=== PATIENT | female | born 1955 | race Hispanic/Latino ===

== ENCOUNTER 2018-08-04 05:30 | Day surgery (SDC) | payer OTHER ==
[~2018-08-04] VITALS: Ht 157.5 cm; Wt 80.6 kg
[2018-08-04] VITALS (10 sets, daily range): BP systolic 89–152; BP diastolic 37–76
[~2018-08-04 05:30] MED LIST: ASPI-555 PO; FURO20TA4 PO; LISI10TA7 PO; METO25TA6 PO; SITA1TAB2 PO
[2018-08-04] MEDS ORDERED: SODIUM CHLORIDE 0.9% 1000ML 1,000 ML IV ONE (06:18)
[2018-08-04] MEDS ORDERED: LACT10SO8 PO (06:29)
[2018-08-04] MEDS ORDERED: PROPOFOL 10 MG/ML 20ML VIAL IV ONE (06:49)
[2018-08-04] MEDS ORDERED: LIDOCAINE HCL-MPF 2% 5ML VIAL ONE (06:49)
[2018-08-04 07:09] LABS: BASOPHILS % (AUTO) 0.3 % (0.0-5.0); EOSINOPHILS % (AUTO) 4.9 % (0.0-8.0); HEMATOCRIT 38.2 % (36-48); LYMPHOCYTES % (AUTO) 33.2 % (21.0-51.0); MEAN CORPUSCULAR HEMOGLOBIN 31.6 pg (27.0-33.0); MEAN CORPUSCULAR HGB CONC 32.8 g/dL (32.0-36.0); MEAN CORPUSCULAR VOLUME 96.4 fL (79-99); MONOCYTES % (AUTO) 10.5 % (3.0-13.0); NEUTROPHILS % (AUTO) 51.1 % (40.0-77.0); NUCLEATED RED BLOOD CELLS 0.2 % (0.0-0.19); PLATELET COUNT (AUTO) 42 K/uL (130-400); RED BLOOD CELL COUNT(AUTO) 3.96 MIL/uL (4.00-5.50); RED CELL DISTRIBUTION WIDTH 13.7 % (11.0-15.5); WHITE BLOOD COUNT (AUTO) 4.6 K/uL (4.8-10.8)
== END 2018-08-04 08:00 | disposition home or self-care (01) ==
LOC: DAH 05:30 → ENDO 05:30
PROVIDERS: ATTEND Internal Medicine
DX: K29.50 Unspecified chronic gastritis without bleeding (principal); K31.89 Other diseases of stomach and duodenum; K74.60 Unspecified cirrhosis of liver; I10 Essential (primary) hypertension; E11.9 Type 2 diabetes mellitus without complications; F41.9 Anxiety disorder, unspecified; F32.9 Major depressive disorder, single episode, unspecified; D64.9 Anemia, unspecified; Z79.899 Other long term (current) drug therapy; Z90.49 Acquired absence of other specified parts of digestive tract; Z98.890 Other specified postprocedural states
CPT/HCPCS: 36415; 43239; 85025; 86850; 86900; 86901; 88305; J2704; J3490; J7030; P9034

== ENCOUNTER → 2018-10-31 | Outpatient (CLI) | payer OTHER ==
[~2018-10-31] MED LIST changes: -ASPI-555 PO; +LACT10SO8 PO; -LISI10TA7 PO
== END | disposition home or self-care (01) ==
LOC: RAH 08:26
PROVIDERS: ATTEND Family Medicine
DX: Z12.31 Encounter for screening mammogram for malignant neoplasm of breast (principal)
CPT/HCPCS: 77067

== ENCOUNTER → 2018-11-26 | Outpatient (CLI) | payer OTHER | END | disposition home or self-care (01) | LOC: RAH 09:17 | PROVIDERS: ATTEND Internal Medicine | DX: K74.60 Unspecified cirrhosis of liver (principal); N28.1 Cyst of kidney, acquired; Z90.49 Acquired absence of other specified parts of digestive tract | CPT/HCPCS: 76700 ==

== ENCOUNTER → 2019-03-31 | Outpatient (CLI) | payer OTHER | END | disposition home or self-care (01) | LOC: RAH 07:59 | PROVIDERS: ATTEND Internal Medicine | DX: N28.1 Cyst of kidney, acquired (principal); Z90.49 Acquired absence of other specified parts of digestive tract | CPT/HCPCS: 76700 ==

== ENCOUNTER → 2019-06-04 | Outpatient (CLI) | payer OTHER ==
[~2019-06-04] MED LIST changes: +LACT10SO62 PO; -LACT10SO8 PO
== END | disposition home or self-care (01) ==
LOC: RAH 07:54
PROVIDERS: ATTEND Family Medicine
DX: N63.11 Unspecified lump in the right breast, upper outer quadrant (principal)
CPT/HCPCS: 76641; 77066

== ENCOUNTER 2021-01-06 23:51 | Observation (INO) | payer OTHER ==
[~2021-01-06] VITALS: Ht 152.4 cm; Wt 85.3 kg
[2021-01-06 23:53] VITALS: BP 135/62
[2021-01-07] VITALS (12 sets, daily range): BP systolic 127–162; BP diastolic 56–83
[2021-01-07] MEDS ORDERED: ONDANSETRON 4MG INJ IVP ONE (01:30)
[2021-01-07] MEDS ORDERED: MORPHINE 4 MG SYG IV PRN (01:30)
[2021-01-07 06:34] LABS: BASOPHILS % (AUTO) 0.2 % (0.0-5.0); EOSINOPHILS % (AUTO) 1.3 % (0.0-8.0); HEMATOCRIT 33.2 % (36-48); MEAN CORPUSCULAR HEMOGLOBIN 33.2 pg (27.0-33.0); MEAN CORPUSCULAR HGB CONC 31.9 g/dL (32.0-36.0); MEAN CORPUSCULAR VOLUME 104.1 fL (79-99); MONOCYTES % (AUTO) 11.8 % (3.0-13.0); NEUTROPHILS % (AUTO) 71.5 % (40.0-77.0); PLATELET COUNT (AUTO) 31 K/uL (130-400); RED BLOOD CELL COUNT(AUTO) 3.19 MIL/uL (4.00-5.50); RED CELL DISTRIBUTION WIDTH 14.9 % (11.0-15.5); WHITE BLOOD COUNT (AUTO) 4.5 K/uL (4.8-10.8)
[2021-01-07 06:42] LABS: ALBUMIN 2.3 g/dL (3.5-5.0); BILIRUBIN,TOTAL 3.7 mg/dL (0.2-1.0); CREATININE 0.3 mg/dL (0.5-1.5); POTASSIUM 4.7 mmol/L (3.5-5.1)
[2021-01-07 07:18] LABS: INR 1.6 (0.85-1.15); PROTHROMBIN TIME 16.7 SEC (9.6-11.6)
[2021-01-07 07:19] LABS: PARTIAL THROMBOPLASTIN TIME 34.5 SEC (26.3-35.5)
[2021-01-07] MEDS ORDERED: LACTULOSE 20 GM/30 ML UDCUP PO PRN (08:45)
[2021-01-07] MEDS ORDERED: ACETAMINOPHEN 325 MG TAB PO PRN (08:45)
[2021-01-07] MEDS: LACTATED RINGERS 1000ML 1,000 ML IV SCH (08:45)
[2021-01-07] MEDS ORDERED: CLONIDINE HCL 0.1 MG TABLET PO PRN (08:45)
[2021-01-07] MEDS ORDERED: ACETAMINOPHEN 650 MG SUPPOSITORY RC PRN (08:45)
[2021-01-07] MEDS: MORPHINE 4 MG SYG IV PRN ×2 (08:48→18:10)
[2021-01-07] MEDS ORDERED: DEXTROSE 50%-WATER 50 ML DISP.SYRIN IV PRN (09:00)
[2021-01-07] MEDS: METOPROLOL TARTRATE 25 MG TAB PO SCH ×2 (09:00→21:21)
[2021-01-07] MEDS ORDERED: POTASSIUM CHLORIDE 10% ELIXIR 20 MEQ/15 ML UDCUP PO PRN (09:00)
[2021-01-07] MEDS: LACTULOSE 20 GM/30 ML UDCUP PO SCH (09:00)
[2021-01-07] MEDS ORDERED: LIDOCAINE HCL-MPF 1% 2ML VIAL IV PRN (09:00)
[2021-01-07] MEDS: PANTOPRAZOLE 40 MG TAB DR PO SCH (09:00)
[2021-01-07] MEDS: FOLIC ACID 1 MG TABLET PO SCH (09:00)
[2021-01-07] MEDS: POLYETHYLENE GLYCOL 3350 17 GM POWD.PACK PO SCH (09:00)
[2021-01-07] MEDS: CEFTRIAXONE 1G VIAL IVP SCH (09:00)
[2021-01-07] MEDS ORDERED: KCL 20 MEQ ERTAB PO PRN (09:00)
[2021-01-07] MEDS ORDERED: THIAMINE HCL 100 MG/ML 2ML VIAL IVP SCH (09:00)
[2021-01-07] MEDS ORDERED: GLUCAGON 1MG KIT 1 MG ML IM PRN (09:00)
[2021-01-07] MEDS: MULTIVITAMIN TABLET PO SCH (09:00)
[2021-01-07] MEDS: ENOXAPARIN SODIUM 40 MG/0.4 ML SYRINGE SQ SCH (09:00)
[2021-01-07] MEDS: THIAMINE HCL 100 MG TABLET PO SCH (09:00)
[2021-01-07] MEDS: FUROSEMIDE 20 MG TABLET PO SCH ×2 (09:00→21:21)
[2021-01-07] MEDS ORDERED: POTASSIUM CHLORIDE 20MEQ/100ML 100 ML IV PRN (09:00)
[2021-01-07 09:32] LABS: RETICULOCYTE % (AUTO) 5.04 % (0.42-2.23)
[2021-01-07 10:07] LABS: CREATINE KINASE, TOTAL 98 U/L (21-232); MYOGLOBIN 37 ng/mL (10-92); TROPONIN I < 0.04 ng/mL (0.00-0.06)
[2021-01-07 10:14] LABS: % IRON SATURATION 101.2 % (22-44)
[2021-01-07] MEDS: INSULIN HUMULIN R 100 UNIT/ML 3ML SQ SCH ×3 (11:30→21:00)
[2021-01-07] MEDS: ONDANSETRON 4MG INJ IVP PRN ×2 (12:05→22:54)
[2021-01-07 17:02] LABS: CREATINE KINASE, TOTAL 78 U/L (21-232); MYOGLOBIN 44 ng/mL (10-92); TROPONIN I < 0.04 ng/mL (0.00-0.06)
[2021-01-07 21:19] LABS: CREATINE KINASE, TOTAL 79 U/L (21-232); MYOGLOBIN 41 ng/mL (10-92); TROPONIN I < 0.04 ng/mL (0.00-0.06)
[2021-01-07 22:23] LABS: APPEARANCE,URINE Clear (CLEAR); BILIRUBIN,URINE Small (NEGATIVE); COLOR,URINE Dark Yellow (YELLOW); GLUCOSE, URINE (UA) Negative (NEGATIVE); KETONES,URINE Negative (NEGATIVE); LEUKOCYTE ESTERASE ,URINE Trace (NEGATIVE); NITRATE,URINE Negative (NEGATIVE); OCCULT BLOOD,URINE Nonhemolyzed Trace (NEGATIVE); PROTEIN,URINE Negative (NEGATIVE); UROBILINOGEN,URINE 0.2 mg/dL (0.2-1.0)
[2021-01-07 22:31] LABS: AMPHET/METH SCREEN,URINE NEGATIVE (NEGATIVE); BARBITURATE SCREEN, URINE NEGATIVE (NEGATIVE); BENZODIAZEPINES SCREEN,URINE NEGATIVE (NEGATIVE); CANNABINOID SCREEN,URINE NEGATIVE (NEGATIVE); COCAINE SCREEN,URINE NEGATIVE (NEGATIVE); OPIATE SCREEN,URINE POSITIVE (NEGATIVE); PHENCYCLIDINE SCREEN,URINE NEGATIVE (NEGATIVE)
[2021-01-07 22:40] LABS: BACTERIA,URINE Few /HPF (None Seen); MUCUS,URINE Few LPF (None Seen)
[2021-01-07] MEDS: TRAMADOL HCL 50 MG TABLET PO PRN (22:58)
[2021-01-08] VITALS (7 sets, daily range): BP systolic 130–146; BP diastolic 51–78
[2021-01-08] MEDS: LACTATED RINGERS 1000ML 1,000 ML IV SCH ×3 (01:37→23:21)
[2021-01-08 05:42] LABS: BASOPHILS % (AUTO) 0.4 % (0.0-5.0); EOSINOPHILS % (AUTO) 3.7 % (0.0-8.0); LYMPHOCYTES % (AUTO) 25.6 % (21.0-51.0); MEAN CORPUSCULAR HEMOGLOBIN 33.6 pg (27.0-33.0); MEAN CORPUSCULAR HGB CONC 31.9 g/dL (32.0-36.0); MEAN CORPUSCULAR VOLUME 105.3 fL (79-99); MONOCYTES % (AUTO) 12.1 % (3.0-13.0); PLATELET COUNT (AUTO) 39 K/uL (130-400); RED BLOOD CELL COUNT(AUTO) 3.04 MIL/uL (4.00-5.50); WHITE BLOOD COUNT (AUTO) 5.7 K/uL (4.8-10.8)
[2021-01-08 05:54] LABS: CREATININE 0.6 mg/dL (0.5-1.5); POTASSIUM 4.3 mmol/L (3.5-5.1)
[2021-01-08] MEDS: INSULIN HUMULIN R 100 UNIT/ML 3ML SQ SCH ×4 (06:11→20:50)
[2021-01-08] MEDS: TRAMADOL HCL 50 MG TABLET PO PRN ×2 (08:49→16:38)
[2021-01-08] MEDS: FUROSEMIDE 20 MG TABLET PO SCH ×2 (08:49→21:11)
[2021-01-08] MEDS: POLYETHYLENE GLYCOL 3350 17 GM POWD.PACK PO SCH (08:49)
[2021-01-08] MEDS: MULTIVITAMIN TABLET PO SCH (08:49)
[2021-01-08] MEDS: FOLIC ACID 1 MG TABLET PO SCH (08:49)
[2021-01-08] MEDS: THIAMINE HCL 100 MG TABLET PO SCH (08:49)
[2021-01-08] MEDS: METOPROLOL TARTRATE 25 MG TAB PO SCH ×2 (08:49→21:10)
[2021-01-08] MEDS: PANTOPRAZOLE 40 MG TAB DR PO SCH (08:49)
[2021-01-08] MEDS: LACTULOSE 20 GM/30 ML UDCUP PO SCH (08:50)
[2021-01-08] MEDS: CEFTRIAXONE 1G VIAL IVP SCH (08:50)
[2021-01-08] MEDS: ENOXAPARIN SODIUM 40 MG/0.4 ML SYRINGE SQ SCH (08:56)
[2021-01-08] MEDS: MORPHINE 4 MG SYG IV PRN (21:12)
[2021-01-09 03:41] VITALS: BP 136/66
[2021-01-09 05:24] LABS: CREATININE 0.5 mg/dL (0.5-1.5); POTASSIUM 3.7 mmol/L (3.5-5.1)
[2021-01-09] MEDS: INSULIN HUMULIN R 100 UNIT/ML 3ML SQ SCH ×3 (06:51→16:23)
[2021-01-09 07:15] VITALS: BP 139/64
[2021-01-09] MEDS: LACTULOSE 20 GM/30 ML UDCUP PO SCH (08:38)
[2021-01-09] MEDS: MULTIVITAMIN TABLET PO SCH (08:39)
[2021-01-09] MEDS: ENOXAPARIN SODIUM 40 MG/0.4 ML SYRINGE SQ SCH (08:39)
[2021-01-09] MEDS: FUROSEMIDE 20 MG TABLET PO SCH (08:39)
[2021-01-09] MEDS: FOLIC ACID 1 MG TABLET PO SCH (08:39)
[2021-01-09] MEDS: CEFTRIAXONE 1G VIAL IVP SCH (08:39)
[2021-01-09] MEDS: METOPROLOL TARTRATE 25 MG TAB PO SCH (08:39)
[2021-01-09] MEDS: PANTOPRAZOLE 40 MG TAB DR PO SCH (08:39)
[2021-01-09] MEDS: POLYETHYLENE GLYCOL 3350 17 GM POWD.PACK PO SCH (08:40)
[2021-01-09] MEDS: MORPHINE 4 MG SYG IV PRN (08:41)
[2021-01-09] MEDS: THIAMINE HCL 100 MG TABLET PO SCH (08:42)
[2021-01-09 11:31] VITALS: BP 149/95
[2021-01-09] MEDS: TRAMADOL HCL 50 MG TABLET PO PRN (11:38)
[2021-01-09] MEDS ORDERED: IBUPROFEN 800 MG TAB PO SCH (13:00)
[2021-01-09] MEDS: LACTATED RINGERS 1000ML 1,000 ML IV SCH (14:05)
[2021-01-09 15:37] VITALS: BP 147/66
== END 2021-01-09 18:10 | disposition home or self-care (01) ==
LOC: EDH 01-07 00:31 → EDHIP 01-07 06:54 → 3BH 01-07 20:27
PROVIDERS: ADMIT Internal Medicine Critical Care Medicine; ATTEND Internal Medicine Critical Care Medicine
DX: S92.351A Displaced fracture of fifth metatarsal bone, right foot, initial encounter for closed fracture (principal); S62.306A Unspecified fracture of fifth metacarpal bone, right hand, initial encounter for closed fracture; R10.2 Pelvic and perineal pain; E11.9 Type 2 diabetes mellitus without complications; I10 Essential (primary) hypertension; D64.9 Anemia, unspecified; E66.9 Obesity, unspecified; R42 Dizziness and giddiness; K76.0 Fatty (change of) liver, not elsewhere classified; Z82.0 Family history of epilepsy and other diseases of the nervous system; Z83.3 Family history of diabetes mellitus; Z79.899 Other long term (current) drug therapy; W10.9XXA Fall (on) (from) unspecified stairs and steps, initial encounter; Y93.01 Activity, walking, marching and hiking; Y92.89 Other specified places as the place of occurrence of the external cause; Y99.8 Other external cause status
CPT/HCPCS: 36415 ×3; 71045; 72170; 72192; 73120; 73502; 76700; 80048 ×2; 80053; 80305; 81001; 82140; 82270; 82550 ×3; 82607; 82728; 82948 ×10; 83874 ×3; 84443; 84484 ×3; 85025 ×2; 85610; 85730; 93005; 96361 ×3; 96372 ×2; 96374; 96375; 96376 ×3; 97039 ×3; 97116 ×2; 97161; 99285; G0378 ×58; G8978; G8979; G8980; G8981; G8982; G8983; J0696 ×3; J1650 ×2; J2270 ×5; J2405 ×3; J3411; J7120 ×4

== ENCOUNTER → 2021-04-14 | Outpatient (CLI) | payer OTHER | END | disposition home or self-care (01) | LOC: SHCH 15:21 | PROVIDERS: ATTEND Internal Medicine Cardiovascular Disease | DX: I08.3 Combined rheumatic disorders of mitral, aortic and tricuspid valves (principal) | CPT/HCPCS: 93306; 93356 ==

== ENCOUNTER → 2022-02-12 | Outpatient (CLI) | payer OTHER ==
[~2022-02-12] MED LIST changes: +ACET-2079 PO; +EMPA25TA PO; +FERS325 PO; +LACT10SO9 PO; +LISI2.5T13 PO; +LOSA25TA41 PO; +RIFA550T PO
== END | disposition home or self-care (01) ==
LOC: SHCH 13:20
PROVIDERS: ATTEND Internal Medicine Cardiovascular Disease
DX: R60.9 Edema, unspecified (principal)
CPT/HCPCS: 93970

== ENCOUNTER 2022-02-16 22:59 | Emergency (ER) | payer OTHER ==
[~2022-02-16] VITALS: Ht 152.4 cm; Wt 86.2 kg
[~2022-02-16 22:59] MED LIST changes: -ACET-2079 PO; -EMPA25TA PO; -FERS325 PO; -LACT10SO9 PO; -LISI2.5T13 PO; -LOSA25TA41 PO; -RIFA550T PO
[2022-02-16 23:00] VITALS: BP 174/78
[2022-02-16] MEDS ORDERED: ACET-2079 PO (23:36)
[2022-02-17] MEDS ORDERED: KETOROLAC 60 MG VIAL (30MG/ML) IM ONE
[2022-02-17] MEDS ORDERED: HYDROCODONE/ACETAMINOPHEN 5/325 MG TAB PO ONE
[2022-02-17] MEDS ORDERED: LIDOCAINE 5% TOPICAL PATCH TP ONE
== END 2022-02-17 00:15 | disposition home or self-care (01) ==
LOC: EDH 22:59
DX: S39.012A Strain of muscle, fascia and tendon of lower back, initial encounter (principal); E11.9 Type 2 diabetes mellitus without complications; E78.00 Pure hypercholesterolemia, unspecified; I10 Essential (primary) hypertension; X58.XXXA Exposure to other specified factors, initial encounter; Y93.89 Activity, other specified; Y92.89 Other specified places as the place of occurrence of the external cause; Y99.8 Other external cause status
CPT/HCPCS: 99283; 96372; J1885

== ENCOUNTER 2022-02-20 19:10 | Observation (INO) | payer OTHER ==
[~2022-02-20] VITALS: Ht 152.4 cm; Wt 84.7 kg
[~2022-02-20 19:10] MED LIST changes: +ACET-2079 PO
[2022-02-20] MEDS ORDERED: MORPHINE 4 MG SYG IM ONE (20:00)
[2022-02-20 21:48] LABS: BASOPHILS % (AUTO) 0.3 % (0.0-5.0); LYMPHOCYTES % (AUTO) 13.4 % (21.0-51.0); MEAN CORPUSCULAR HEMOGLOBIN 32.7 pg (27.0-33.0); MEAN CORPUSCULAR HGB CONC 32.3 g/dL (32.0-36.0); MEAN CORPUSCULAR VOLUME 101.3 fL (79-99); MONOCYTES % (AUTO) 14.4 % (3.0-13.0); NEUTROPHILS % (AUTO) 69.5 % (40.0-77.0); PLATELET COUNT (AUTO) 51 K/uL (130-400); RED BLOOD CELL COUNT(AUTO) 3.06 MIL/uL (4.00-5.50); RED CELL DISTRIBUTION WIDTH 15.8 % (11.0-15.5); WHITE BLOOD COUNT (AUTO) 9.8 K/uL (4.8-10.8)
[2022-02-20 21:58] LABS: POTASSIUM 4.1 mmol/L (3.5-5.1)
[2022-02-20 21:59] LABS: INR 1.45 (0.85-1.15); PROTHROMBIN TIME 15.5 SEC (9.6-11.6)
[2022-02-20 22:07] LABS: ALBUMIN 1.9 g/dL (3.5-5.0); TOTAL PROTEIN, SERUM 5.5 g/dL (6.0-8.3)
[2022-02-20] MEDS: 0.9%NACL 1000ML 1,000 ML IV SCH (22:53)
[2022-02-20] MEDS ORDERED: MORPHINE 2 MG SYG IVP PRN (23:00)
[2022-02-20] MEDS ORDERED: GLUCAGON 1MG KIT 1 MG ML IM PRN (23:00)
[2022-02-20] MEDS ORDERED: ONDANSETRON 4MG INJ IVP PRN (23:00)
[2022-02-20] MEDS ORDERED: LACTULOSE 20 GM/30 ML UDCUP PO PRN (23:00)
[2022-02-20] MEDS ORDERED: HYDRALAZINE 20MG/ML VIAL IV PRN (23:00)
[2022-02-20] MEDS ORDERED: LABETALOL 20MG SYG IV PRN (23:00)
[2022-02-20] MEDS ORDERED: DEXTROSE 50%-WATER 50 ML DISP.SYRIN IV PRN (23:00)
[2022-02-20] MEDS ORDERED: CLONIDINE HCL 0.1 MG TABLET PO PRN (23:00)
[2022-02-20] MEDS ORDERED: EMPA25TA PO (23:11)
[2022-02-20] MEDS ORDERED: FERS325 PO (23:11)
[2022-02-20] MEDS ORDERED: RIFA550T PO (23:11)
[2022-02-20] MEDS ORDERED: LISI2.5T13 PO (23:11)
[2022-02-20] MEDS ORDERED: LOSA25TA41 PO (23:11)
[2022-02-20] MEDS ORDERED: LACT10SO9 PO (23:15)
[2022-02-21] MEDS: HYDROMORPHONE 1 MG INJ IVP PRN ×2 (01:09→10:06)
[2022-02-21 07:07] LABS: HEMATOCRIT 32.8 % (36-48); MEAN CORPUSCULAR HEMOGLOBIN 32.1 pg (27.0-33.0); MEAN CORPUSCULAR HGB CONC 31.1 g/dL (32.0-36.0); MEAN CORPUSCULAR VOLUME 103.1 fL (79-99); RED BLOOD CELL COUNT(AUTO) 3.18 MIL/uL (4.00-5.50); RED CELL DISTRIBUTION WIDTH 15.9 % (11.0-15.5); WHITE BLOOD COUNT (AUTO) 8.6 K/uL (4.8-10.8)
[2022-02-21 07:26] LABS: CREATININE 0.9 mg/dL (0.5-1.5); MAGNESIUM 1.7 mg/dL (1.80-2.40); PHOSPHORUS 3.2 mg/dL (2.5-4.9)
[2022-02-21] MEDS: INSULIN HUMULIN R 100 UNIT/ML 3ML SQ SCH ×4 (07:30→20:45)
[2022-02-21 08:15] VITALS: BP 136/57
[2022-02-21] MEDS: ENOXAPARIN SODIUM 40 MG/0.4 ML SYRINGE SQ SCH (09:00)
[2022-02-21] MEDS: LIDOCAINE 5% TOPICAL PATCH TP SCH (10:10)
[2022-02-21 11:42] VITALS: BP 129/79
[2022-02-21 16:00] VITALS: BP 133/55
[2022-02-21] MEDS ORDERED: ACETAMINOPHEN WITH CODEINE 1 TAB TAB PO PRN (16:00)
[2022-02-21 16:45] VITALS: BP 133/55
[2022-02-21] MEDS: 0.9%NACL 1000ML 1,000 ML IV SCH (18:45)
[2022-02-21 20:00] VITALS: BP 135/60
[2022-02-21] MEDS ORDERED: KETOROLAC 15MG/ML VIAL (15MG/ML) ONE (20:59)
[2022-02-21] MEDS ORDERED: CALCITONIN 3.7 ML AEROSOL NS SCH (21:00)
[2022-02-22] VITALS: BP 152/67
[2022-02-22] MEDS: KETOROLAC 15MG/ML VIAL (15MG/ML) IV PRN ×3 (03:35→14:45)
[2022-02-22 04:00] VITALS: BP 125/50
[2022-02-22] MEDS: 0.9%NACL 1000ML 1,000 ML IV SCH (05:29)
[2022-02-22] MEDS: INSULIN HUMULIN R 100 UNIT/ML 3ML SQ SCH ×2 (06:16→11:06)
[2022-02-22 08:00] VITALS: BP 129/56
[2022-02-22] MEDS: LIDOCAINE 5% TOPICAL PATCH TP SCH (08:09)
[2022-02-22] MEDS: ENOXAPARIN SODIUM 40 MG/0.4 ML SYRINGE SQ SCH (08:10)
[2022-02-22 11:20] VITALS: BP 137/54
== END 2022-02-22 16:15 ==
LOC: EDH 19:10 → EDHIP 22:32 → 4BH 02-21 08:25
PROVIDERS: ADMIT Internal Medicine Critical Care Medicine; ATTEND Internal Medicine Critical Care Medicine
DX: S22.089A Unspecified fracture of T11-T12 vertebra, initial encounter for closed fracture (principal); I10 Essential (primary) hypertension; E11.9 Type 2 diabetes mellitus without complications; E78.00 Pure hypercholesterolemia, unspecified; D64.9 Anemia, unspecified; E66.01 Morbid (severe) obesity due to excess calories; D72.819 Decreased white blood cell count, unspecified; E86.9 Volume depletion, unspecified; K74.60 Unspecified cirrhosis of liver; M81.0 Age-related osteoporosis without current pathological fracture; Z79.899 Other long term (current) drug therapy; X50.9XXA Other and unspecified overexertion or strenuous movements or postures, initial encounter; Y93.F2 Activity, caregiving, lifting; Y92.89 Other specified places as the place of occurrence of the external cause
CPT/HCPCS: 96374; 96372 ×2; 96361 ×5; 99285; 84484; 80053; 85025; 85610; 36415 ×2; 72131; 72128; 93005; 96376 ×2; 96375 ×2; 83735; 84100; 80048; 85027; 82948 ×6; 97161; 97039 ×3; G0378 ×40; J7030 ×2; J2270; J1170 ×2; J2405; J1650 ×2; J1885 ×4

== ENCOUNTER 2022-04-20 14:10 | Emergency (ER) | payer OTHER ==
[~2022-04-20] VITALS: Ht 162.6 cm; Wt 81.6 kg
[~2022-04-20 14:10] MED LIST changes: +EMPA25TA PO; +FERS325 PO; +LACT10SO9 PO; +LISI2.5T13 PO; +LOSA25TA41 PO; -METO25TA6 PO; +RIFA550T PO
[2022-04-20 14:38] LABS: BASOPHILS % (AUTO) 0.5 % (0.0-5.0); EOSINOPHILS % (AUTO) 0.6 % (0.0-8.0); LYMPHOCYTES % (AUTO) 16.4 % (21.0-51.0); MEAN CORPUSCULAR HGB CONC 32.2 g/dL (32.0-36.0); MEAN CORPUSCULAR VOLUME 99.4 fL (79-99); MONOCYTES % (AUTO) 12.3 % (3.0-13.0); NEUTROPHILS % (AUTO) 68.9 % (40.0-77.0); PLATELET COUNT (AUTO) 49 K/uL (130-400); RED BLOOD CELL COUNT(AUTO) 3.62 MIL/uL (4.00-5.50); RED CELL DISTRIBUTION WIDTH 15.3 % (11.0-15.5); WHITE BLOOD COUNT (AUTO) 8.6 K/uL (4.8-10.8)
[2022-04-20 15:00] LABS: CREATININE 1.3 mg/dL (0.5-1.5); POTASSIUM 3.5 mmol/L (3.5-5.1)
[2022-04-20 15:10] LABS: ALBUMIN 1.9 g/dL (3.5-5.0); MAGNESIUM 1.2 mg/dL (1.80-2.40); TOTAL PROTEIN, SERUM 6.7 g/dL (6.0-8.3)
[2022-04-20 15:10] LABS: APPEARANCE,URINE CLEAR (CLEAR); BILIRUBIN,URINE NEGATIVE (NEGATIVE); COLOR,URINE YELLOW (YELLOW); GLUCOSE, URINE (UA) 250 mg/dL (NEGATIVE); KETONES,URINE NEGATIVE (NEGATIVE); LEUKOCYTE ESTERASE ,URINE NEGATIVE Leu/uL (NEGATIVE); NITRATE,URINE NEGATIVE (NEGATIVE); OCCULT BLOOD,URINE TRACE-INTACT (NEGATIVE); PROTEIN,URINE NEGATIVE (NEGATIVE); UROBILINOGEN,URINE 0.2 mg/dL (0.2-1.0)
[2022-04-20 15:14] LABS: B-TYPE NATRIURETIC PEPTIDE 100 pg/mL (0-100)
[2022-04-20 15:18] LABS: BACTERIA,URINE Rare /HPF (None Seen); MUCUS,URINE Rare LPF (None Seen); SQUAMOUS EPITHELIAL CELL,UR Few /HPF (0-2)
[2022-04-20] MEDS ORDERED: IPRATROPIUM/ALBUTEROL SULFATE 3 ML SOLUTION IH STA (16:41)
[2022-04-20] MEDS ORDERED: MAGNESIUM 2GM PREMIX 50ML 50 ML IV STA (16:43)
[2022-04-20] MEDS ORDERED: ALBUTEROL 0.083% 2.5 MG/3 ML INH IH ONE ×2 (17:32→18:00)
[2022-04-20] MEDS ORDERED: AUD IH (18:37)
[2022-04-20 18:44] VITALS: BP 138/87
== END 2022-04-20 18:56 | disposition home or self-care (01) ==
LOC: EDH 14:10
DX: T50.905A Adverse effect of unspecified drugs, medicaments and biological substances, initial encounter (principal); J18.9 Pneumonia, unspecified organism; E83.42 Hypomagnesemia; Z20.822 Contact with and (suspected) exposure to COVID-19; Z90.49 Acquired absence of other specified parts of digestive tract; Z98.890 Other specified postprocedural states; Z79.899 Other long term (current) drug therapy; Y92.89 Other specified places as the place of occurrence of the external cause
CPT/HCPCS: 99285; 96365; 71045; 87635; 96366; 83735; 84484; 80053; 83880; 85025; 87804 ×2; 81001; 36415; 51702; 93005; 94640 ×2; C9803; J3475

== ENCOUNTER 2022-04-27 13:44 | Emergency (ER) | payer OTHER ==
[~2022-04-27] VITALS: Ht 152.4 cm; Wt 77.1 kg
[~2022-04-27 13:44] MED LIST changes: +AUD IH
[2022-04-27 14:29] LABS: BASOPHILS % (AUTO) 0.5 % (0.0-5.0); EOSINOPHILS % (AUTO) 0.4 % (0.0-8.0); HEMATOCRIT 38.8 % (36-48); LYMPHOCYTES % (AUTO) 19.7 % (21.0-51.0); MEAN CORPUSCULAR HEMOGLOBIN 32.8 pg (27.0-33.0); MEAN CORPUSCULAR HGB CONC 32.7 g/dL (32.0-36.0); MEAN CORPUSCULAR VOLUME 100.3 fL (79-99); MONOCYTES % (AUTO) 11.7 % (3.0-13.0); NEUTROPHILS % (AUTO) 67.1 % (40.0-77.0); PLATELET COUNT (AUTO) 84 K/uL (130-400); RED BLOOD CELL COUNT(AUTO) 3.87 MIL/uL (4.00-5.50); RED CELL DISTRIBUTION WIDTH 17.4 % (11.0-15.5); WHITE BLOOD COUNT (AUTO) 9.6 K/uL (4.8-10.8)
[2022-04-27 14:40] LABS: CREATININE 1.3 mg/dL (0.5-1.5); POTASSIUM 3.1 mmol/L (3.5-5.1)
[2022-04-27 14:45] LABS: TOTAL PROTEIN, SERUM 7.2 g/dL (6.0-8.3)
[2022-04-27] MEDS: POTASSIUM BICARB/CIT AC 25 MEQ TABLET.EFF PO ONE (15:21)
[2022-04-27] MEDS: POTASSIUM BICARB/CIT AC 25 MEQ TABLET.EFF ONE (16:09)
[2022-04-27] MEDS: 0.9%NACL 1000ML 1,000 ML IV ONE (16:10)
[2022-04-27 17:03] VITALS: BP 124/76
== END 2022-04-27 17:24 | disposition home or self-care (01) ==
LOC: EDH 13:44
DX: K76.9 Liver disease, unspecified (principal); R11.2 Nausea with vomiting, unspecified; Z20.822 Contact with and (suspected) exposure to COVID-19; I10 Essential (primary) hypertension; E11.9 Type 2 diabetes mellitus without complications; I25.10 Atherosclerotic heart disease of native coronary artery without angina pectoris; Z79.899 Other long term (current) drug therapy
CPT/HCPCS: 99285; 74176; 96360; 76705; 71045; 87635; 80053; 82140; 85025; 87804 ×2; 36415; C9803; J7030

== ENCOUNTER 2022-07-13 18:16 | Inpatient (IN) | payer OTHER ==
[~2022-07-13] VITALS: Ht 152.4 cm; Wt 84.4 kg
[2022-07-13 18:45] LABS: BASOPHILS % (AUTO) 0.3 % (0.0-5.0); EOSINOPHILS % (AUTO) 1.5 % (0.0-8.0); HEMATOCRIT 32.7 % (36-48); LYMPHOCYTES % (AUTO) 15.9 % (21.0-51.0); MEAN CORPUSCULAR HEMOGLOBIN 32.9 pg (27.0-33.0); MEAN CORPUSCULAR HGB CONC 32.4 g/dL (32.0-36.0); MEAN CORPUSCULAR VOLUME 101.6 fL (79-99); MONOCYTES % (AUTO) 13.2 % (3.0-13.0); NEUTROPHILS % (AUTO) 68.6 % (40.0-77.0); PLATELET COUNT (AUTO) 36 K/uL (130-400); RED BLOOD CELL COUNT(AUTO) 3.22 MIL/uL (4.00-5.50); RED CELL DISTRIBUTION WIDTH 14.6 % (11.0-15.5); WHITE BLOOD COUNT (AUTO) 5.9 K/uL (4.8-10.8)
[2022-07-13 18:56] LABS: CREATININE 1.8 mg/dL (0.5-1.5); POTASSIUM 4.1 mmol/L (3.5-5.1)
[2022-07-13 19:04] LABS: TOTAL PROTEIN, SERUM 5.7 g/dL (6.0-8.3)
[2022-07-13] MEDS: NALOXONE HCL 0.4 MG/1 ML ML IVP SCH (20:18)
[2022-07-13 21:58] LABS: INR 1.48 (0.85-1.15); PROTHROMBIN TIME 15.8 SEC (9.6-11.6)
[2022-07-13 21:59] LABS: PARTIAL THROMBOPLASTIN TIME 32.2 SEC (26.3-35.5)
[2022-07-13] MEDS ORDERED: ONDANSETRON 4MG INJ IVP PRN (23:00)
[2022-07-13] MEDS ORDERED: ALBUTEROL 0.083% 2.5 MG/3 ML INH IH PRN (23:00)
[2022-07-13] MEDS ORDERED: HYDRALAZINE 20MG/ML VIAL IV PRN (23:00)
[2022-07-13] MEDS: IPRATROPIUM 0.5 MG/2.5 ML INH IH SCH (23:48)
[2022-07-14] VITALS (7 sets, daily range): BP systolic 105–149; BP diastolic 56–90
[2022-07-14] MEDS ORDERED: LACTULOSE 20 GM/30 ML UDCUP PR SCH ×2 (01:00→12:30)
[2022-07-14 02:17] LABS: APPEARANCE,URINE CLEAR (CLEAR); BILIRUBIN,URINE NEGATIVE (NEGATIVE); COLOR,URINE YELLOW (YELLOW); GLUCOSE, URINE (UA) TRACE mg/dL (NEGATIVE); KETONES,URINE NEGATIVE (NEGATIVE); LEUKOCYTE ESTERASE ,URINE NEGATIVE Leu/uL (NEGATIVE); NITRATE,URINE NEGATIVE (NEGATIVE); OCCULT BLOOD,URINE NEGATIVE (NEGATIVE); PH,URINE 5.5 (5.0-8.0); PROTEIN,URINE NEGATIVE (NEGATIVE); UROBILINOGEN,URINE 0.2 mg/dL (0.2-1.0)
[2022-07-14 02:19] LABS: MUCUS,URINE RARE LPF (None Seen); RBC,URINE 0-1 /HPF (0-1); SQUAMOUS EPITHELIAL CELL,UR FEW /HPF (0-2)
[2022-07-14 04:38] LABS: BASOPHILS % (AUTO) 0.5 % (0.0-5.0); EOSINOPHILS % (AUTO) 1.3 % (0.0-8.0); HEMATOCRIT 30.5 % (36-48); LYMPHOCYTES % (AUTO) 21.3 % (21.0-51.0); MEAN CORPUSCULAR HGB CONC 32.1 g/dL (32.0-36.0); MEAN CORPUSCULAR VOLUME 102.7 fL (79-99); MONOCYTES % (AUTO) 11.8 % (3.0-13.0); NEUTROPHILS % (AUTO) 64.6 % (40.0-77.0); PLATELET COUNT (AUTO) 38 K/uL (130-400); RED BLOOD CELL COUNT(AUTO) 2.97 MIL/uL (4.00-5.50); RED CELL DISTRIBUTION WIDTH 14.6 % (11.0-15.5); WHITE BLOOD COUNT (AUTO) 6.2 K/uL (4.8-10.8)
[2022-07-14 04:53] LABS: CREATININE 1.7 mg/dL (0.5-1.5); MAGNESIUM 1.9 mg/dL (1.80-2.40); PHOSPHORUS 4.6 mg/dL (2.5-4.9); POTASSIUM 4.2 mmol/L (3.5-5.1)
[2022-07-14] MEDS: IPRATROPIUM 0.5 MG/2.5 ML INH IH SCH (06:44)
[2022-07-14] MEDS ORDERED: TRAZ-187 PO (10:34)
[2022-07-14] MEDS ORDERED: METO5TAB2 PO (10:34)
[2022-07-14] MEDS ORDERED: TRAM50TA4 PO (10:34)
[2022-07-14] MEDS ORDERED: CALC-1125 PO (10:46)
[2022-07-14] MEDS ORDERED: BUME2TAB5 PO (10:46)
[2022-07-14] MEDS ORDERED: EMPA25TA PO (10:46)
[2022-07-14] MEDS ORDERED: BACL10TA PO (10:46)
[2022-07-14] MEDS ORDERED: FURO20TA4 PO (10:46)
[2022-07-14] MEDS ORDERED: [UNRECOGNIZED DRUG - OTHER] (10:46)
[2022-07-14] MEDS ORDERED: PREG25CA18 PO (10:46)
[2022-07-14] MEDS ORDERED: LOSA25TA41 PO (10:46)
[2022-07-14] MEDS ORDERED: MELA10CA2 PO (10:46)
[2022-07-14] MEDS ORDERED: OMEP10CA5 PO (10:46)
[2022-07-14] MEDS ORDERED: RIFA550T PO (10:46)
[2022-07-14] MEDS ORDERED: LACT10SO9 PO (10:47)
[2022-07-14] MEDS ORDERED: LACTULOSE 20 GM/30 ML UDCUP PO SCH (12:30)
[2022-07-14] MEDS ORDERED: PHARMACY COMMUNICATION MISC SCH (12:30)
[2022-07-14 17:21] LABS: ABG BASE EXCESS 3.7 mmol/L (-2.0-3.0); ABG HCO3 28.5 mmol/L (21.0-28.0); ABG OXYGEN SATURATION 85.5 % (95.0-99.0); ABG PCO2 44 mmHg (32-45)
[2022-07-14] MEDS: NALOXONE HCL 0.4 MG/1 ML ML IVP SCH (19:51)
[2022-07-14] MEDS: LACTULOSE 20 GM/30 ML UDCUP PO SCH (21:00)
[2022-07-14] MEDS ORDERED: DEXTROSE 50%-WATER 50 ML DISP.SYRIN IV ONE ×2 (21:12→21:14)
[2022-07-14] MEDS: FAMOTIDINE 20MG VIAL IV SCH (21:14)
[2022-07-15 04:00] VITALS: BP 124/61
[2022-07-15 06:54] LABS: HEMATOCRIT 31.3 % (36-48); MEAN CORPUSCULAR HEMOGLOBIN 32.2 pg (27.0-33.0); MEAN CORPUSCULAR HGB CONC 31.3 g/dL (32.0-36.0); RED BLOOD CELL COUNT(AUTO) 3.04 MIL/uL (4.00-5.50); RED CELL DISTRIBUTION WIDTH 14.6 % (11.0-15.5); WHITE BLOOD COUNT (AUTO) 7.2 K/uL (4.8-10.8)
[2022-07-15 07:02] LABS: CREATININE 1.7 mg/dL (0.5-1.5); POTASSIUM 4.2 mmol/L (3.5-5.1)
[2022-07-15 08:00] VITALS: BP 115/60
[2022-07-15] MEDS ORDERED: LACTULOSE 20 GM/30 ML UDCUP PO SCH (09:00)
[2022-07-15] MEDS: RIFAXIMIN 550 MG TABLET PO SCH (09:00)
[2022-07-15] MEDS: FAMOTIDINE 20MG VIAL IV SCH ×2 (09:00→20:51)
[2022-07-15] MEDS: LACTULOSE 20 GM/30 ML UDCUP PO SCH ×3 (09:00→23:14)
[2022-07-15 16:00] VITALS: BP 110/61
[2022-07-15 20:00] VITALS: BP 95/44
[2022-07-15] MEDS: NALOXONE HCL 0.4 MG/1 ML ML IVP SCH (20:30)
[2022-07-16] VITALS: BP 124/56
[2022-07-16 04:00] VITALS: BP 116/57
[2022-07-16] MEDS: RIFAXIMIN 550 MG TABLET PO SCH (09:00)
[2022-07-16] MEDS: LACTULOSE 20 GM/30 ML UDCUP PO SCH ×3 (09:15→20:54)
[2022-07-16] MEDS: FAMOTIDINE 20MG VIAL IV SCH (09:15)
[2022-07-16 09:55] VITALS: BP 105/62
[2022-07-16 10:33] LABS: CREATININE 2.2 mg/dL (0.5-1.5); POTASSIUM 4.5 mmol/L (3.5-5.1)
[2022-07-16 11:30] VITALS: BP 109/46
[2022-07-16] MEDS ORDERED: BACLOFEN 10 MG TABLET PO PRN (13:00)
[2022-07-16] MEDS ORDERED: METOCLOPRAMIDE 5 MG TABLET PO PRN (13:00)
[2022-07-16] MEDS ORDERED: FUROSEMIDE 20 MG TABLET PO PRN (13:00)
[2022-07-16 15:30] VITALS: BP 132/65
[2022-07-16 20:00] VITALS: BP 122/73
[2022-07-17] VITALS: BP 121/72
[2022-07-17] MEDS ORDERED: CEFTRIAXONE 2GM VIAL IVP SCH
[2022-07-17] MEDS ORDERED: DEXTROSE 5%-WATER 1,000 ML IV SCH
[2022-07-17 04:18] VITALS: BP 105/75
[2022-07-17 05:25] LABS: HEMATOCRIT 32.3 % (36-48); MEAN CORPUSCULAR HEMOGLOBIN 32.6 pg (27.0-33.0); MEAN CORPUSCULAR HGB CONC 31.6 g/dL (32.0-36.0); MEAN CORPUSCULAR VOLUME 103.2 fL (79-99); RED BLOOD CELL COUNT(AUTO) 3.13 MIL/uL (4.00-5.50); RED CELL DISTRIBUTION WIDTH 14.7 % (11.0-15.5); WHITE BLOOD COUNT (AUTO) 9.7 K/uL (4.8-10.8)
[2022-07-17 05:52] LABS: CREATININE 2.4 mg/dL (0.5-1.5); POTASSIUM 4.2 mmol/L (3.5-5.1)
[2022-07-17 08:00] VITALS: BP 124/74
[2022-07-17] MEDS: LACTULOSE 20 GM/30 ML UDCUP PO SCH ×3 (09:00→21:09)
[2022-07-17] MEDS: DEXTROSE 5%-WATER 1,000 ML IV SCH (09:30)
[2022-07-17] MEDS: CALCIUM CARB 500MG CHEW TAB PO SCH (10:34)
[2022-07-17] MEDS: RIFAXIMIN 550 MG TABLET PO SCH (10:34)
[2022-07-17] MEDS: FAMOTIDINE 20MG VIAL IV SCH (10:35)
[2022-07-17 12:00] VITALS: BP 130/60
[2022-07-17] MEDS: CEFTRIAXONE 2GM VIAL IVPB SCH (12:00)
[2022-07-17] MEDS: HYDROCODONE/ACETAMINOPHEN 5/325 MG TAB PO PRN ×2 (15:47→21:10)
[2022-07-17 16:00] VITALS: BP 124/60
[2022-07-17 20:00] VITALS: BP 103/54
[2022-07-18] VITALS: BP 117/61
[2022-07-18 05:38] LABS: BASOPHILS % (AUTO) 0.5 % (0.0-5.0); EOSINOPHILS % (AUTO) 3.1 % (0.0-8.0); HEMATOCRIT 31.2 % (36-48); LYMPHOCYTES % (AUTO) 19.9 % (21.0-51.0); MEAN CORPUSCULAR HEMOGLOBIN 32.7 pg (27.0-33.0); MEAN CORPUSCULAR HGB CONC 32.1 g/dL (32.0-36.0); MONOCYTES % (AUTO) 11.9 % (3.0-13.0); NEUTROPHILS % (AUTO) 63.8 % (40.0-77.0); PLATELET COUNT (AUTO) 38 K/uL (130-400); RED BLOOD CELL COUNT(AUTO) 3.06 MIL/uL (4.00-5.50); RED CELL DISTRIBUTION WIDTH 14.3 % (11.0-15.5); WHITE BLOOD COUNT (AUTO) 6.1 K/uL (4.8-10.8)
[2022-07-18 05:40] LABS: CREATININE 1.7 mg/dL (0.5-1.5); POTASSIUM 3.5 mmol/L (3.5-5.1)
[2022-07-18 05:56] LABS: INR 1.76 (0.85-1.15); PROTHROMBIN TIME 18.6 SEC (9.6-11.6)
[2022-07-18] MEDS: DEXTROSE 5%-WATER 1,000 ML IV SCH (07:09)
[2022-07-18 08:00] VITALS: BP 125/63
[2022-07-18] MEDS: RIFAXIMIN 550 MG TABLET PO SCH (08:43)
[2022-07-18] MEDS: LACTULOSE 20 GM/30 ML UDCUP PO SCH (08:43)
[2022-07-18] MEDS: FAMOTIDINE 20MG VIAL IV SCH (08:43)
[2022-07-18] MEDS: CALCIUM CARB 500MG CHEW TAB PO SCH (09:56)
[2022-07-18 11:00] VITALS: BP 127/62
[2022-07-18] MEDS: CEFTRIAXONE 2GM VIAL IVPB SCH (11:10)
[2022-07-18] MEDS: HYDROCODONE/ACETAMINOPHEN 5/325 MG TAB PO PRN (11:11)
[2022-07-18 16:00] VITALS: BP 128/70
== END 2022-07-18 18:00 | DRG 442 ==
LOC: EDH 18:16 → EDHIP 22:45 → OBSVTOIN 22:45 → 4BH 07-14 01:29 → 3CH 07-15 03:25
PROVIDERS: ADMIT Internal Medicine Critical Care Medicine; ATTEND Internal Medicine Critical Care Medicine
DX: K76.82 Hepatic encephalopathy (principal); N17.9 Acute kidney failure, unspecified; N18.30 Chronic kidney disease, stage 3 unspecified; E11.22 Type 2 diabetes mellitus with diabetic chronic kidney disease; I12.9 Hypertensive chronic kidney disease with stage 1 through stage 4 chronic kidney disease, or unspecified chronic kidney disease; D69.6 Thrombocytopenia, unspecified; D53.9 Nutritional anemia, unspecified; K74.60 Unspecified cirrhosis of liver; G89.29 Other chronic pain; M54.9 Dorsalgia, unspecified
CPT/HCPCS: 36415; 36600; 70450; 71045; 73020; 74176; 80048; 80053; 81001; 82140; 82330; 82550; 82803; 82948; 83605; 83615; 83735; 84100; 84145; 84443; 84484; 85025; 85027; 85610; 85730; 86850; 86900; 86901; 87088; 92610; 93005; 94640; 94664; 97039; G0378; J0696; J2310; J3490; J7070

== ENCOUNTER → 2022-09-07 | Outpatient (CLI) | payer OTHER ==
[~2022-09-07] MED LIST changes: -ACET-2079 PO; -AUD IH; +BACL10TA PO; +BUME2TAB5 PO; +CALC-1125 PO; -FERS325 PO; -FURO20TA4 PO; -LACT10SO62 PO; -LISI2.5T13 PO; +MELA10CA2 PO; +METO5TAB2 PO; +OMEP10CA5 PO; +PREG25CA18 PO; -SITA1TAB2 PO; +TRAM50TA4 PO; +TRAZ-187 PO
== END | disposition home or self-care (01) ==
LOC: RAH 09:58
PROVIDERS: ATTEND Internal Medicine
DX: R18.8 Other ascites (principal); R93.3 Abnormal findings on diagnostic imaging of other parts of digestive tract; Z90.49 Acquired absence of other specified parts of digestive tract; K86.2 Cyst of pancreas
CPT/HCPCS: 76700; 93975